=== PATIENT | female | born 1970 | race Caucasian/White ===

== ENCOUNTER 2020-03-18 16:47 | Emergency (ER) | payer MEDICAID ==
[~2020-03-18] VITALS: Ht 175.3 cm; Wt 81.5 kg
[~2020-03-18 16:47] MED LIST: CEFD300C37 PO; POTA20TA6 PO
--- NOTE | 2020-03-18 17:01 | NUR ---
DR PAIGE IN TO EVAL PT FOR EVAL FOR POSSIBLE CVA. EKG COMPLETED. PER DR PAIGE NO CODE NEURO
[2020-03-18 17:31] LABS: ANION GAP 3 mmol/L (5-15); CALCIUM 8.7 mg/dL (8.5-10.1); CHLORIDE 108 mmol/L (98-107)
[2020-03-18 17:42] LABS: MEAN CORPUSCULAR HEMOGLOBIN 32.3 pg (27.0-34.8); MEAN CORPUSCULAR HGB CONC 33.9 g/dL (32.4-35.8); MEAN PLATELET VOLUME 9.5 fL (7.4-10.4); PLATELET COUNT 270 x10^3/uL (130-400); RED CELL DISTRIBUTION WIDTH 12.6 % (9.6-15.2)
[2020-03-18 18:46] LABS: MD YES
[2020-03-18 18:48] LABS: BASOS#(MANUAL) 0.19 x10^3/uL (0-0.1); BASOS% (MANUAL) 2 % (0-1); EOS#(MANUAL) 0.28 x10^3/uL (0.0-0.4); EOS% (MANUAL) 3 % (1-7); LYMPH#(MANUAL) 2.54 x10^3/uL (1-3.4); LYMPHS% (MANUAL) 27 % (22-44); MONOS#(MANUAL) 0.56 x10^3/uL (0.3-2.7); MONOS% (MANUAL) 6 % (2-9); SEG#(MANUAL) 5.83 x10^3/uL (1.8-6.8); SEGS% (MANUAL) 62 % (42-75)
[2020-03-18 18:49] LABS: <PLATELET ESTIMATE> ADEQUATE; <PLT MORPHOLOGY> NORMAL PLT MORPH; <RBC MORPHOLOGY> NORMAL
--- NOTE | 2020-03-18 19:20 | NUR ---
ORAL AND MAXILLOFACIAL PATHOLOGIST: PT TO ROOM FROM LOBBY AT THIS TIME, AMBULATORY WITH STEADY GAIT WITH ELECTRICIAN POWERHOUSE.
[2020-03-18 19:43] VITALS: BP 109/76
== END 2020-03-18 19:54 | disposition home or self-care (01) ==
LOC: ED 17:30
DX: R51.9 Headache, unspecified (principal); I51.7 Cardiomegaly; R11.0 Nausea; F17.200 Nicotine dependence, unspecified, uncomplicated; Z98.51 Tubal ligation status
CPT/HCPCS: 36415; 80048; 85025; 93005; 99284

== ENCOUNTER 2020-03-20 13:23 | Emergency (ER) | payer MEDICAID ==
[~2020-03-20] VITALS: Ht 175.3 cm; Wt 82.8 kg
[2020-03-20 14:15] LABS: BASOPHILS % (AUTO) 1 % (0-1); EOSINOPHILS % (AUTO) 8 % (1-7); LYMPHOCYTES % (AUTO) 28 % (22-44); MEAN CORPUSCULAR HEMOGLOBIN 32.2 pg (27.0-34.8); MEAN CORPUSCULAR HGB CONC 33.8 g/dL (32.4-35.8); MONOCYTES % (AUTO) 10 % (2-9); NEUTROPHILS % (AUTO) 53 % (42-75); PLATELET COUNT 256 x10^3/uL (130-400); RED BLOOD COUNT 4.49 x10^6/uL (3.82-5.3); RED CELL DISTRIBUTION WIDTH 12.7 % (9.6-15.2)
[2020-03-20 14:20] LABS: ALBUMIN 3.7 g/dL (3.4-5.0); CALCIUM 8.6 mg/dL (8.5-10.1); CREATININE 0.73 mg/dL (0.55-1.02)
[2020-03-20 14:27] LABS: ANION GAP 3 mmol/L (5-15); CHLORIDE 109 mmol/L (98-107)
[2020-03-20 14:32] LABS: MD NO
--- NOTE | 2020-03-20 17:19 | NUR ---
PT C/O HEADACHE AND DIZZNESS SINCE LAST FRIDAY. PT HAD FACIAL NUMBESS AND WEAKNESS FRIDAY AND WAS SEEN AT [facility]. PT PAIN 10/28. PT HAS NAUSEA, DENIES VOMITING TODAY. PT ALSO HAS LEFT EAR PAIN. PT HAS STRON INFORMATION SCIENTIST AND PEDAL PUSHES BILATERALLY. PT SELF MEDICATED AT HOME WITH MOTRIN AND HER DAUGHTER'S NORCO. PT STATES THE NORCO DID HELP HER TO SLEEP.
[2020-03-20 17:25] VITALS: BP 112/70
[2020-03-20] MEDS ORDERED: KETOROLAC 30 MG/1 ML ONE (17:49)
[2020-03-20] MEDS ORDERED: DIPHENHYDRAMINE 50 MG/ML, 1ML ONE (17:49)
[2020-03-20] MEDS ORDERED: ONDANSETRON 2MG/ML, 2ML ONE (17:50)
[2020-03-20] MEDS ORDERED: ONDANSETRON 2MG/ML, 2ML IVPush ONE (18:00)
[2020-03-20] MEDS ORDERED: SODIUM CHLORIDE FLUSH 10ML SYR IVF ONE (18:00)
[2020-03-20] MEDS ORDERED: DIPHENHYDRAMINE 50 MG/ML, 1ML IVPush ONE (18:00)
[2020-03-20] MEDS ORDERED: KETOROLAC 30 MG/1 ML IVPush ONE (18:00)
--- NOTE | 2020-03-20 19:05 | NUR ---
REPORT RECEIVED FROM DEANDRA ORTA. ASSUMED CARE OF PT. PT IN CT AT THIS TIME.
[2020-03-20] MEDS ORDERED: OMNIPAQUE 350 MG/ML, 100ML BOTTLE ONE (19:28)
--- NOTE | 2020-03-20 19:35 | NUR ---
DR. PAIGE AT BEDSIDE UPDATING PT ON TEST RESULTS. PT TO BE DISCHARGED
--- NOTE | 2020-03-20 20:04 | NUR ---
Patient/Caregiver given discharge instructions and they have confirmed that they understand the instructions. Patient ambulatory with steady gait.
== END 2020-03-20 20:06 | disposition home or self-care (01) ==
LOC: ED 18:17
DX: R51.9 Headache, unspecified (principal); L04.0 Acute lymphadenitis of face, head and neck; R94.31 Abnormal electrocardiogram [ECG] [EKG]
CPT/HCPCS: 36415; 70450; 70491; 80048; 82040; 85025; 93005; 96374; 96375; 99285; J1200; J1885; J2405; Q9967